=== PATIENT | female | born 2000 | race Caucasian/White ===

== ENCOUNTER → 2021-09-20 | Outpatient (CLI) | payer OTHER ==
[2021-09-22 03:09] LABS: CHLAMYDIA TRACHOMATIS, NAA Negative (Negative)
== END | disposition home or self-care (01) ==
LOC: LAB SHORT 11:57
PROVIDERS: Physician Assistant
DX: A74.9 Chlamydial infection, unspecified (principal); A54.9 Gonococcal infection, unspecified
CPT/HCPCS: 87491; 87591